=== PATIENT | female | born 1945 | race Caucasian/White ===

== ENCOUNTER 2017-03-29 08:31 | Day surgery (SDC) | payer MEDICARE, BC ==
[2017-03-29] MEDS ORDERED: Midazolam* 1 MG/ML 2 ML VIAL (2 MG) ONE ×2 (11:28→11:30)
[2017-03-29] MEDS ORDERED: Cyclopentolate 1% OPTH.SOL* 2 ML BTL ONE (13:48)
[2017-03-29] MEDS ORDERED: Lidocaine 2% EPI 1:200000 MPF* 20 ML VIAL ONE (13:48)
[2017-03-29] MEDS ORDERED: Phenylephrine 2.5% OPTH.SOL* 2 ML BTL ONE (13:48)
[2017-03-29] MEDS ORDERED: Neomycin/Polymy/Dex OPTH.SUSP* MAXITROL 0.1% 5 ML ONE (13:48)
[2017-03-29] MEDS ORDERED: acetaZOLAMIDE TAB* 250 MG ONE (13:48)
[2017-03-29] MEDS ORDERED: Proparacaine 0.5% OPHTH.SOL* 15 ML BTL ONE (13:48)
[2017-03-29] MEDS ORDERED: Lidocaine 1% MPF* 2 ML VIAL ONE (13:48)
[2017-03-29] MEDS ORDERED: Povidone Iodine 5% OPTH* 30 ML BTL ONE (13:48)
[2017-03-29] MEDS ORDERED: Ketorolac 0.5% OPHTH (NF) 0.5 % 5 ML BTL ONE (13:48)
[2017-03-29] MEDS ORDERED: Buffered Lidocaine 0.9% SYRIN* 5 ML/SYR SYRINGE ONE (13:49)
--- NOTE | 2017-03-29 22:58 | OP ---
DATE OF OPERATION: 03/29/17 [facility] DATE OF : 47 SURGEON: Corky Baldwin MD PREOPERATIVE DIAGNOSIS: Cataract, right eye. POSTOPERATIVE DIAGNOSIS: Cataract, right eye. OPERATIVE PROCEDURE: Phacoemulsification, right eye with IOL. DESCRIPTION OF PROCEDURE: The patient was brought to the operating room after being given 1/2% Alcaine with epinephrine drops in the preoperative area. The eye was prepped and draped in the usual sterile fashion. Sterile drape and eyelid speculum were placed. Again, topical 1/2% Alcaine with epinephrine was given. A paracentesis incision was made at the 9 o'clock position with the No.75 blade. Clear cornea incision 2.2 x 2.2-mm was created at the 12 o'clock position starting at the anterior limbus using the 2.2-mm keratome. The anterior chamber was irrigated with 0.4 mL of 1% non-preservative intracameral lidocaine and filled with DisCoVisc. A capsulorrhexis was completed using the cystotome and the Utrata forceps. Hydrodissection was performed with balanced salt solution. The lens nucleus was removed with the Phacoemulsification handpiece without incident. Cortex was removed with the irrigation-aspiration handpiece. The capsular bag was re-inflated using DisCoVisc and an [id number] implant was inserted with the shooter. The irrigation-aspiration handpiece was used to remove all residual DisCoVisc. The eye was refilled with balanced salt solution and the wound checked and found to be watertight. Topical Maxitrol drops were given. [id number]/[facility] #: [id number] [facility] HOSPITALHugo
[2017-04-11] MEDS ORDERED: Buffered Lidocaine 0.9% SYRIN* 5 ML/SYR SYRINGE INTRADERM ONE (14:35)
[2017-04-12] MEDS ORDERED: Acetaminophen TAB* 325 MG PO PRN (05:00)
[2017-04-12 09:56] VITALS: BP 107/61
== END 2017-03-29 12:15 | disposition home or self-care (01) ==
LOC: OREAST 08:31
PROVIDERS: ATTEND Specialist
DX: H25.811 Combined forms of age-related cataract, right eye (principal); Z87.891 Personal history of nicotine dependence; H43.813 Vitreous degeneration, bilateral; E78.00 Pure hypercholesterolemia, unspecified; M81.0 Age-related osteoporosis without current pathological fracture
CPT/HCPCS: A9270-GY; J2250; V2632

== ENCOUNTER 2017-04-12 07:45 | Day surgery (SDC) | payer MEDICARE, BC ==
[2017-03-29 12:57] VITALS: BP 118/60
[~2017-04-12 07:45] MED LIST: Buffered Lidocaine 0.9% SYRIN* 5 ML/SYR SYRINGE INTRADERM ONE
[2017-04-12] MEDS ORDERED: Midazolam* 1 MG/ML 2 ML VIAL (2 MG) ONE (09:07)
[2017-04-12] MEDS ORDERED: fentaNYL* 50 MCG/ML 2 ML VIAL (100 MCG VIAL) ONE (09:07)
--- NOTE | 2017-04-12 10:12 | OP ---
DATE OF OPERATION: 04/12/2017. DATE OF : 1945. SURGEON: Corky Baldwin M.D. PREOPERATIVE DIAGNOSIS: Cataract left eye. POSTOPERATIVE DIAGNOSIS: Cataract left eye. OPERATIVE PROCEDURE: Phacoemulsification left eye with IOL. PROCEDURE: The patient was brought to the operating room after being given 1/2% Alcaine with epinep hrine drops in the preoperative area. The eye was prepped and draped in the usual sterile fashion. Sterile drape and eyelid speculum were placed. Again, topical 1/2% Alcaine with epinephrine was gi familia. A paracentesis incision was made at the 3 o'clock position with the No.75 blade. Clear cornea incision 2.2 x 2.2-mm was created at the 6 o'clock position starting at the anterior limbus using t he 2.2-mm keratome. The anterior chamber was irrigated with 0.4 mL of 1% non-preservative intracame ral lidocaine and filled with DisCoVisc. A capsulorrhexis was completed using the cystotome and the Utrata forceps. Hydrodissection was performed with balanced salt solution. The lens nucleus was re moved with the Phacoemulsification handpiece without incident. Cortex was removed with the irrigati on-aspiration handpiece. The capsular bag was re-inflated using DisCoVisc and an [id number] implant was inserted with the shooter. The irrigation-aspiration handpiece was used to remove all residual DisCoVisc. The eye was refilled with balanced salt solution and the wound checked and found to be w atertight. Topical Maxitrol drops were given. [id number]/[facility] #: [id number]
[2017-04-12] MEDS ORDERED: Buffered Lidocaine 0.9% SYRIN* 5 ML/SYR SYRINGE ONE (11:51)
[2017-04-12] MEDS ORDERED: Cyclopentolate 1% OPTH.SOL* 2 ML BTL ONE (11:51)
[2017-04-12] MEDS ORDERED: Povidone Iodine 5% OPTH* 30 ML BTL ONE (11:51)
[2017-04-12] MEDS ORDERED: Proparacaine 0.5% OPHTH.SOL* 15 ML BTL ONE (11:51)
[2017-04-12] MEDS ORDERED: Phenylephrine 2.5% OPTH.SOL* 2 ML BTL ONE (11:51)
[2017-04-12] MEDS ORDERED: Neomycin/Polymy/Dex OPTH.SUSP* MAXITROL 0.1% 5 ML ONE (11:51)
[2017-04-12] MEDS ORDERED: Lidocaine 1% MPF* 2 ML VIAL ONE (11:51)
[2017-04-12] MEDS ORDERED: acetaZOLAMIDE TAB* 250 MG ONE (11:51)
[2017-04-12] MEDS ORDERED: Ketorolac 0.5% OPHTH (NF) 0.5 % 5 ML BTL ONE (11:51)
[2017-04-12] MEDS ORDERED: Lidocaine 2% EPI 1:200000 MPF* 20 ML VIAL ONE (11:51)
== END 2017-04-12 10:05 | disposition home or self-care (01) ==
LOC: OREAST 07:45
PROVIDERS: ATTEND Specialist
DX: H25.812 Combined forms of age-related cataract, left eye (principal); Z96.1 Presence of intraocular lens; H43.813 Vitreous degeneration, bilateral; Z85.828 Personal history of other malignant neoplasm of skin; J30.2 Other seasonal allergic rhinitis; Z87.891 Personal history of nicotine dependence; M81.0 Age-related osteoporosis without current pathological fracture
CPT/HCPCS: A9270-GY; J2250; J3010; V2632